=== PATIENT | male | born 2000 | race Caucasian/White ===

== ENCOUNTER 2025-02-11 22:59 | Emergency (ER) | payer OTHER ==
[2025-02-11] MEDS ORDERED: Lidocaine 1% w/Epinephrine 1:200K 30 ML VIAL ONE (23:48)
[2025-02-11] MEDS ORDERED: Triple Antibiotic Oint 1 GM Packet ONE (23:49)
== END 2025-02-12 00:43 | disposition home or self-care (01) ==
LOC: CSHERS 22:59
DX: S01.111A Laceration without foreign body of right eyelid and periocular area, initial encounter (principal); Z23 Encounter for immunization; W22.8XXA Striking against or struck by other objects, initial encounter
CPT/HCPCS: 12011; 90471; 90715